=== PATIENT | female | born 1955 | race Caucasian/White ===

== ENCOUNTER 2016-12-11 19:15 | Inpatient (IN) | payer BC, MEDICARE ==
[2016-12-11] MEDS ORDERED: IV FLUID CONTINUATION 1,000 ML IV ONE (19:30)
[2016-12-11] MEDS ORDERED: SODIUM CHLORIDE 0.9% 500 ML IV ONE (19:31)
[2016-12-11] MEDS ORDERED: LIDOCAINE 2% INJ 20 MG/ML SQ ONE (19:35)
[2016-12-11] MEDS ORDERED: fentaNYL (PF) 50 MCG/ML 2 ML AMP IV ONE (19:37)
[2016-12-11] MEDS: MIDAZOLAM 2 MG/2 ML VIAL IVP ONE ×4 (19:37→20:56)
[2016-12-11] MEDS ORDERED: MIDAZOLAM 2 MG/2 ML VIAL ONE ×2 (19:37→20:52)
[2016-12-11] MEDS ORDERED: LIDOCAINE 2% INJ 20 MG/ML (20 ML MDV) ONE (19:54)
[2016-12-11 20:25] LABS: Site PA; Site RV OUT FLOW
[2016-12-11 20:26] LABS: Site FA; Site RA; Site RV APEX
[2016-12-11] MEDS ORDERED: BENZOCAINE SPRAY 100 APPLIC/CAN MUCOUS MEM ONE ×2 (20:43→20:50)
[2016-12-11] MEDS ORDERED: HEPARIN SODIUM,PORCINE/D5W PMX 25,000 UNIT in DEXTROSE/WATER 1 500ML.BAG IV ONE (20:44)
--- NOTE | 2016-12-11 21:44 | HP ---
DATE OF ADMISSION: 12/11/2016 Mrs. Orozco is a 60 -year-old female who was transferred from [facility] with diagnosis of acute myocardial infarction. This patient has history of smoking. She has not seen a doctor for several years and she is not taking any medications. She has been having some symptoms of cough and shortness of breath for the last three to four days and she has been having intermittent substernal and epigastric discomfort which she describes as heartburn. The discomfort would subside with belching. The patient came to [facility] Emergency Room Department. Chest x-ray was suggestive of congestive cardiac failure. The patient troponin showed [address] elevation in V1 and ST segment depression was noted in the inferior leads. The patient's troponin was 42. In view of that, the patient was transferred over here. The patient does not take any medications. He has a history of hypertension. There is no history of diabetes. The patient smokes one pack per day. PAST MEDICAL HISTORY: No history of any major surgeries. REVIEW OF SYSTEMS: Otherwise unremarkable. PHYSICAL EXAMINATION: Revealed a 60 -year-old female who was in mild respiratory distress. Oxygen desaturation was 96%. Blood pressure 150/70 mmHg. HEENT: Negative. NECK: Supple. There was no significant increase in jugular venous pressure noted. Both carotid pulses are felt. There is no bruit. CHEST: Symmetrical. CARDIAC: First and second heart sounds were normal. There was a holosystolic murmur noted at the left sternal border suggestive of possible ventricular septal defect. LUNGS: Reveals bilateral basal rales. ABDOMEN: Soft. EXTREMITIES: Peripheral pulsations were 2+. EKG showed evidence of [address] segment elevation in leads V1 and ST segment depression in V2, 3 and AVF. FINAL IMPRESSION: Acute myocardial infarction possibly anterior septal myocardial infarction. I am not sure the duration of the patient's myocardial infarction. The patient's troponin is 42. The patient was recommended to have urgent cardiac catheterization in view of the abnormal troponin, EKG and congestive cardiac failure.
--- NOTE | 2016-12-11 21:59 | CC ---
DATE OF SERVICE: PROCEDURE PERFORMED: Left heart catheterization. PREPROCEDURE DIAGNOSIS: Acute myocardial infarction. The right groin was prepped and draped in the usual manner and the skin was infiltrated with 2% Xylocaine. The right femoral artery was entered using Seldinger technique and a #6 British sheath was placed in. Selective coronary angiography was then performed in multiple projections. Left ventricular pressures were obtained and left ventriculography was then performed in 40 degree ALGERIAN projection. HEMODYNAMICS: Left ventricular end-diastolic pressure was 28 to 30 mmHg prior to angiography. No gradient was noted across the aortic valve. SELECTIVE CORONARY ANGIOGRAPHY: LEFT MAIN CORONARY ARTERY: The left main coronary artery is normal and patent. LEFT ANTERIOR DESCENDING CORONARY ARTERY: The left anterior descending coronary artery is a good caliber blood vessel and it proximally has 90% stenosis. CIRCUMFLEX CORONARY ARTERY: Circumflex coronary artery is a large caliber blood vessel and has 90% stenosis in the proximal to mid portion. RIGHT CORONARY ARTERY: The right coronary artery is diffusely diseased and has a complex 99% stenosis in the right coronary artery. LEFT VENTRICULOGRAPHY: Left ventriculography was performed in ALGERIAN projection which shows evidence of septal hypokinesia with some flow noted near the apical septum suggestive of possible small ventricle septal defect. FINAL IMPRESSION: This study shows severe triple vessel disease with elevated left ventricular end-diastolic pressure and possible ventricular septal defect. Estimated ejection fraction by LV gram is 35%. PROCEDURE #2: Right heart catheterization. The right femoral vein was entered using Seldinger technique and #8 British sheath was placed in and the right heart catheterization was performed. Right atrial pressure was 8 to 10 mmHg. Right ventricular systolic pressure was 60/10 mmHg. Pulmonary capillary wedge pressure was 20-25 mmHg. Pulmonary artery systolic pressure is 60. End diastolic pressure is 30 mmHg. Cardiac output was 3.8 L. The oxygen saturations were obtained. The oxygen saturation in the right atrium, right ventricle and pulmonary artery was 68%. Arterial saturation was 79%. FINAL IMPRESSION: Right heart catheterization shows significantly elevated pulmonary artery systolic pressure, end diastolic pressure and wedge pressure. There is no significant step up in oxygen saturation noted by oximetry. Procedure #3: Intraaortic balloon placement PREOPERATIVE DIAGNOSIS: Severe triple vessel disease with impending cardiogenic shock and possible ventricular septal defect. The guidewire was passed through the existing 6 British sheath and a 9 British sheath was placed in. Subsequently, the balloon catheter was advanced and this was positioned below the left clavicle. Good wave form was obtained. Good augmented pressure was obtained. Balloon catheter was then fixed to the skin. The patient tolerated the procedure well.
--- NOTE | 2016-12-11 22:05 | ECHOT ---
DATE OF SERVICE: CLINICAL INFORMATION: PROCEDURE: The patient was given intravenous sedation with Versed and transesophageal echocardiogram was performed without any complication. The anterior septum and the anterior septum is hypokinetic. Inferolateral wall is mildly nitin. The mitral valve morphology is normal. There is mild mitral regurgitation noted. There is no evidence of any papillary muscle rupture or flailed mitral leaflet. No definite ventricular septal defect would be identified by the color doppler study. Estimated ejection fraction is 30 to 35%.
--- NOTE | 2016-12-11 22:07 | CC ---
DATE OF SERVICE: ADDENDUM: Total sedation time for all the procedures including left heart catheterization, right heart catheterization, intraaortic balloon pump and the transesophageal echocardiogram was 90 minutes.
--- NOTE | 2016-12-13 10:48 | ECHOF ---
Referral Reason: MEASUREMENTS -------- HEIGHT: 157.5 cm WEIGHT: 86.2 kg BP: IVSd: 1.0 cm (0.6 - 1.1) LVIDd: 4.5 cm (3.9 - 5.3) LVPWd: 1.3 cm (0.6 - 1.1) IVSs: 1.3 cm LVIDs: 4.4 cm LVPWs: 1.2 cm Ao Diam: 2.8 cm (2.0 - 3.7) AV Cusp: 2.1 cm (1.5 - 2.6) LA Diam: 3.3 cm (2.7 - 3.8) MV EXCURSION: 17.007 mm (> 18.000) MV EF SLOPE: 113 mm/s (70 - 150) EPSS: 1.8 cm RAP: 5.00 mmHg RVSP: 36.89 mmHg FINDINGS -------- Sinus rhythm. This was a technically good study. There is mild concentric left ventricular hypertrophy. There is severe global hypokinesis of LV . Overall left ventricular systolic function is severely impaired with, an EF < 20%. Basal Segment Ruby only. The right ventricle is normal in size and function. The left atrium is mildly dilated. The right atrium is normal in size. Aortic valve is trileaflet and is mildly thickened. The mitral valve leaflets are mildly thickened. Mild mitral regurgitation is present. Mild tricuspid regurgitation present. The right ventricular systolic pressure, as measured by Doppler, is 36.89mmHg. Pulmonic valve appears structurally normal. The aortic root size is normal. The pericardium is normal. CONCLUSIONS -------- 1. Sinus rhythm. 2. Aortic valve is trileaflet and is mildly thickened. 3. The mitral valve leaflets are mildly thickened. 4. Mild mitral regurgitation is present. 5. Mild tricuspid regurgitation present. 6. The right ventricular systolic pressure, as measured by Doppler, is 36.89mmHg. 7. Pulmonic valve appears structurally normal. 8. The aortic root size is normal. 9. The pericardium is normal. 10. This was a technically good study. 11. There is mild concentric left ventricular hypertrophy. 12. There is severe global hypokinesis of LV . 13. Overall left ventricular systolic function is severely impaired with, an EF < 20%. 14. Basal Segment Ruby only. 15. The right ventricle is normal in size and function. 16. The left atrium is mildly dilated. 17. The right atrium is normal in size. [employer]: Marti Acevedo RDCS
== END 2016-12-11 22:05 | disposition short-term general hospital (02) | DRG 270 ==
LOC: 6ICU 19:15
PROVIDERS: ADMIT Family Medicine; ATTEND Internal Medicine Cardiovascular Disease
PROC: 5A02210 Assistance with Cardiac Output using Balloon Pump, Continuous (ICD-10-PCS; principal; 2016-12-11 19:17)
PROC: 4A023N8 Measurement of Cardiac Sampling and Pressure, Bilateral, Percutaneous Approach (ICD-10-PCS; principal; 2016-12-11 19:17)
PROC: B2151ZZ Fluoroscopy of Left Heart using Low Osmolar Contrast (ICD-10-PCS; principal; 2016-12-11 19:17)
PROC: B2111ZZ Fluoroscopy of Multiple Coronary Arteries using Low Osmolar Contrast (ICD-10-PCS; principal; 2016-12-11 19:17)
PROC: B246ZZ4 Ultrasonography of Right and Left Heart, Transesophageal (ICD-10-PCS; principal; 2016-12-11 19:17)
DX: I21.3 ST elevation (STEMI) myocardial infarction of unspecified site (principal); R57.0 Cardiogenic shock; Q21.0 Ventricular septal defect; I25.10 Atherosclerotic heart disease of native coronary artery without angina pectoris; F17.210 Nicotine dependence, cigarettes, uncomplicated; I10 Essential (primary) hypertension
CPT/HCPCS: 33967; 82810; 85018; 93306; 93312; 93320; 93325; 93453